=== PATIENT | female | born 1950 | race Caucasian/White ===

== ENCOUNTER → 2020-01-16 17:47 | Outpatient (CLI) | payer MEDICARE, OTHER, SELFPAY ==
--- NOTE | ~2020-01-16 | MM_ITS ---
EXAMINATION: MM screening payal BI w daniel HISTORY: Screening mammogram TECHNIQUE: Craniocaudal and mediolateral oblique 3-D tomosynthesis images were obtained and synthetic 2-D images were generated. CAD analysis was submitted and interpreted. COMPARISON: , 07/25/2017, 07/05/2016 bilateral digital screening mammogram examinations BREAST PARENCHYMAL COMPOSITION: There are scattered areas of fibroglandular density. FINDINGS: There is a stable benign circumscribed 4 mm opacity in the posterior outer left breast, unc hanged since 07/05/2016. Benign calcification in the right breast. There is no evidence of suspicious m ass, calcification, or architectural distortion to suggest malignancy in either breast. There has bee n no suspicious interval change. IMPRESSION: 1. No mammographic evidence of malignancy. 2. Recommend routine screening mammography in one year. BI-RADS Category 2: Benign finding(s). Reviewed, dictated and finalized at location A.
== END ==
PROVIDERS: PCP Family Medicine; Visit Provider Physician Assistant Medical
DX: Z12.31 Encounter for screening mammogram for malignant neoplasm of breast (principal)
CPT/HCPCS: 77063; 77067

== ENCOUNTER 2020-01-27 10:51 | Outpatient (CLI) | payer MEDICARE, OTHER, SELFPAY | END 2020-01-27 10:52 | disposition home or self-care (01) | LOC: ANHSURGERY 10:54 | PROVIDERS: PCP Family Medicine; Visit Provider Urology | DX: N81.10 Cystocele, unspecified (principal); Z01.818 Encounter for other preprocedural examination | CPT/HCPCS: 87086 ==

== ENCOUNTER 2020-02-04 00:47 | Outpatient (CLI) | payer MEDICARE, OTHER, SELFPAY ==
[2020-02-05 03:00] LABS: SARS-CoV-2 RNA PCR Negative
== END 2020-02-04 00:48 | disposition home or self-care (01) ==
LOC: ANHCOVIDDT 00:48
PROVIDERS: PCP Family Medicine; Visit Provider Urology
DX: Z01.812 Encounter for preprocedural laboratory examination (principal); Z20.828 Contact with and (suspected) exposure to other viral communicable diseases
CPT/HCPCS: 87635; C9803; U0003

== ENCOUNTER 2020-02-06 02:19 | Day surgery (SDC) | payer MEDICARE, OTHER, SELFPAY ==
[2020-01-23 10:07] VITALS: BMI 23.6
--- NOTE | 2020-02-01 10:55 | P.HP_ITS ---
H&P: HPI History of Present Illness Date/Time: 02/01/20 10:55 Chief complaint: cytocele, stress incontinence Narrative: Joanne Morejon is a 69 year old female with a cystocele and SOLEDAD Review of Systems Review of Systems: All systems reviewed & are unremarkable except as noted in HPI and below [facility] Social History Social History Smoking status: Never smoker Alcohol intake: current Drinks per week: 1 Substance use: never Additional living arrangements comments: & MOTHER Spiritual care concerns: No Meds Home Medications and Allergies Home Medications Medication Instructions Recorded Confirmed Type L.acid-L.casei-B.bif-B.awilda-FOS 1 cap PO DAILY 01/23/20 01/23/20 History [Probiotic Blend] bupropion HCl 150 mg PO QAM 01/23/20 01/23/20 History calcium citrate-vitamin D3 1 tablet PO DAILY 01/23/20 01/23/20 History [Citracal + D Maximum] cetirizine 10 mg PO QAM 01/23/20 01/23/20 History escitalopram oxalate 20 mg PO HS 01/23/20 01/23/20 History famotidine 40 mg PO QAM 01/23/20 01/23/20 History levothyroxine 75 mcg PO QAM 01/23/20 01/23/20 History montelukast 10 mg PO HS 01/23/20 01/23/20 History Allergies Allergy/AdvReac Type Severity Reaction Status Date / Time No Known Allergies Allergy Verified 01/23/20 10:00 Exam Const: General: cooperative and healthy appearing Eyes: General: appearance normal, both eyes and all related structures Resp: Effort & Inspection: normal respiratory effort GI: Inspection: normal to inspection : External Female Exam: normal appearance of the urethra (hypermobility) Speculum Exam - Vagina: normal palpation (+1 cystocele) Skin: General skin exam: normal color Neuro: General: patient oriented x3 Assessment and Plan Assessment and plan (1) Cystocele: Status: Acute Assessment and Plan: cystocele repair (2) SOLEDAD (stress urinary incontinence, female): Code(s): N39.3 - Stress incontinence (female) (male) Status: Acute Assessment and Plan: urethral sling
--- NOTE | 2020-02-05 10:29 | WPDANESEPPF ---
Anes - Initial Pre Proc Eval Procedure: Operation Date: 02/06/20 09:00 Proposed Procedures p Cystocele Repair - Prem Smith MD s Urethral Sling - Prem Smith MD Date/Time: 02/05/20 10:29 Surgeon: Prem Smith MD Pre Op Diagnosis: cytocele, stress incontinence Patient Data Age: 69 Gender: F Height: 1.52 m Weight: 55 kg Allergies Allergy/AdvReac Type Severity Reaction Status Date / Time No Known Allergies Allergy Verified 01/23/20 10:00 Home Medications Medication Instructions Recorded Confirmed Type L.acid-L.casei-B.bif-B.awilda-FOS 1 cap PO DAILY 01/23/20 01/23/20 History [Probiotic Blend] bupropion HCl 150 mg PO QAM 01/23/20 01/23/20 History calcium citrate-vitamin D3 1 tablet PO DAILY 01/23/20 01/23/20 History [Citracal + D Maximum] cetirizine 10 mg PO QAM 01/23/20 01/23/20 History escitalopram oxalate 20 mg PO HS 01/23/20 01/23/20 History famotidine 40 mg PO QAM 01/23/20 01/23/20 History levothyroxine 75 mcg PO QAM 01/23/20 01/23/20 History montelukast 10 mg PO HS 01/23/20 01/23/20 History Patient hx anesthesia problems: none Family hx anesthesia problems: none PMFSH Past Medical History Medical History (Updated 02/05/20 @ 10:30 by Romulo Harris MD) Anxiety Cystocele Depression Hypothyroidism SOLEDAD (stress urinary incontinence, female) Social History Social History Smoking status: Never smoker Alcohol intake: current Drinks per week: 1 Alcohol use details: WINE Substance use: never Living arrangements: with family Additional living arrangements comments: & MOTHER Spiritual care concerns: No Anes - Eval Final PreProcedure Day of Procedure 02/05/20 10:29 Patient weight: normal Heart: regular rate and rhythm Lungs: clear to auscultation and normal air movement Airway: Mallampati scale class II Neurological: alert and oriented Last oral intake: >/= 8 hours ASA classification: II Emergent: no Anesthetic plan: proceed Anesthesia type and monitoring: general LMA Informed Consent: The patient's anesthetic plan and its attendant risks and benefits were discussed with the patient/family/POA. Questions were solicited and answers provided to the satisfaction of the patient/family/POA.
[2020-02-06] VITALS (9 sets, daily range): BP systolic 102–143; BP diastolic 66–78; PULSE 71–120; RESP 16–19; TEMP 36.6–36.8; O2SAT 97–100; BMI 19.1
--- NOTE | 2020-02-06 07:33 | WPDHPUPDATE1 ---
History and Physical Update Update Date/Time: 02/06/20 07:33 History and Physical has been reviewed, including an updated exam of the patient. There are NO changes in the patient's condition. Risks, benefits, and alternatives have been discussed and questions answered. Patient agrees to proceed with procedure.
[2020-02-06] MEDS: LACTATED RINGERS 1,000 ML 30 ML IV CONT ×2 (08:44→10:43)
[2020-02-06] MEDS: ceFAZolin 2 GM/D5W 50 ML 2 GM/50 ML BAG IVPB (09:45)
[2020-02-06] MEDS: BUPIVACAINE/EPINEPHRINE 0.25% 50 ML VIAL 30 ML INFILTRATE (10:08)
[2020-02-06] MEDS: KETOROLAC 30 MG/ML VIAL (*BKC) IV PUSH (10:14)
--- NOTE | 2020-02-06 10:36 | P.OP_ITS ---
Procedure Note - Detailed Date of procedure: 02/06/20 Pre-op diagnosis: cytocele, stress incontinence Cystocele Stress incontinence Post-op diagnosis: same Procedure performed: Cystocele repair/anterior colporrhaphy Urethral sling Cystoscopy Description of procedure: Anesthesia: General She understood the risks of bleeding, infection, damage to surrounding organs, dyspareunia, postoperative stress incontinence, and recurrence of prolapse. She understands the risk of vaginal mesh extrusion as well as vaginal mesh erosion. She understands the risks of need for mesh removal or loosening of the sling if she is unable into her bladder. She agrees to proceed. She has correctly identified and informed consent was obtained and she was brought to the operating room. She was given general anesthesia. She was p laced in the dorsal thigh position. She was prepped and draped in sterile fashion. Given appropriate perioperative antibiotics. A time-out was performed. I placed a Looney catheter. I placed a [place] retractor. Of note she has significant atrophic vaginitis. I infiltrated the subcutaneous tissues of the anterior vaginal wall with local mixed with injectable saline. I made a midline vaginal incision. I dissected out laterally dissecting the mucosa off the underlying fascial structures. I dissected towards the vaginal apex as well. I then performed a standard cystocele repair with plicating sutures of 0 Vicryl. This reduced the cystocele. I then trimmed excess vaginal mucosa. I closed the vaginal closed with a running 2 0 Vicryl suture. There was excellent hemostasis. I then marked out the thigh incisions. I anesthetized the anterior vaginal wall over the mid urethra. I made a midline incision over the mid urethra. I dissected out laterally taking great care not to injure the refilled vaginal. I passed helical trocars. First on the left. On the right. From the thigh incision towards the vaginal incision. The sling was connected to the trocars. It was brought out through the thigh incision. I tensioned the sling appropriately. I cut and removed the plastic sheaths. I then closed the incision with 2 0 Vicryl. I then performed cystoscopy. The bladder is examined. There is no surgical artifact or injury. Both ureteral orifices were seen to excrete clear yellow urine. At the conclusion she was awakened and transferred to the PACU in stable condition. Sponge count is correct x2. Implants: None Anesthesia: GETA Surgeon: Prem Smith MD Drains: No Packing: No Pathology: none sent Complications: No immediate complications Condition: stable Disposition: PACU
--- NOTE | 2020-02-06 10:50 | SUR.PHASEI ---
02/06/20 1045- oxygen removed per foundation digger
--- NOTE | 2020-02-06 15:19 | SUR.PHASEII ---
1200. PT URINATED WITHOUT ISSUE.
== END 2020-02-06 12:25 | disposition home or self-care (01) ==
PROVIDERS: PCP Family Medicine; Visit Provider Urology
PROC: (CPT 57240; principal; 2020-02-06 09:00)
PROC: (CPT 57240; 2020-02-06 09:00)
DX: N81.10 Cystocele, unspecified (principal); N39.3 Stress incontinence (female) (male); E03.9 Hypothyroidism, unspecified; F41.8 Other specified anxiety disorders
CPT/HCPCS: 57240; 57288; A9270; C1758; C1769; C1771; J0690; J1100; J1885; J2250; J2405; J2704; J3010; J7030; J7120

== ENCOUNTER → 2021-03-10 13:33 | Outpatient (CLI) | payer MEDICARE, OTHER, SELFPAY ==
--- NOTE | ~2021-03-10 | MM_ITS ---
EXAMINATION: MM screening payal BI w daniel HISTORY: Screening TECHNIQUE: Craniocaudal and mediolateral oblique 3-D tomosynthesis images were obtained and synthetic 2-D images were generated. CAD analysis was submitted and interpreted. COMPARISON: Comparison to multiple prior studies sequentially, with oldest reviewed study dated 05/24. BREAST PARENCHYMAL COMPOSITION: There are scattered areas of fibroglandular density. FINDINGS: There is no evidence of suspicious mass, calcification, or architectural distortion to sugg est malignancy in either breast. There has been no suspicious interval change. IMPRESSION: 1. No mammographic evidence of malignancy. 2. Recommend routine screening mammography in one year. BI-RADS Category 1: Negative Reviewed, dictated and finalized at location A. 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
== END ==
PROVIDERS: PCP Family Medicine; Visit Provider Family Medicine
DX: Z12.31 Encounter for screening mammogram for malignant neoplasm of breast (principal)
CPT/HCPCS: 77063; 77067

== ENCOUNTER → 2021-04-20 11:31 | Outpatient (CLI) | payer MEDICARE, OTHER, SELFPAY ==
--- NOTE | ~2021-04-20 | DEXA_ITS ---
Bone Density Report Name: CHANDA RUTHERFORD Age: 70 Sex: Female Ethnicity: White Date of : 1950 Indication: postmenopausal osteoporosis; monitoring treatment; inflammatory bowel disease; asthma or emphysema; hysterectomy; Referring Provider: SOULEYMANE, ERICA Study: Bone densitometry was performed. Exam Date: April 20, 2021 Accession number: [id number] Bone Density: Region BMD T-score Z-score Classification AP Spine (L1-L4) 0.721 -3.0 -0.8 Osteoporosis Femoral Neck (Left) 0.547 -2.7 -0.8 Osteoporosis Total Hip (Left) 0.758 -1.5 0.1 Osteopenia Femoral Neck (Right) 0.575 -2.5 -0.6 Osteoporosis Total Hip (Right) 0.767 -1.4 0.1 Osteopenia Total Hip Mean 0.763 -1.5 0.1 Osteopenia World Health Organization criteria for BMD impression classify patients as: Normal (T-score at or above -1.0), Osteopenia (T-score between -1.0 and -2.5), or Osteoporosis (T-score at or below -2.5). 10-year Fracture Risk: FRAX not reported because: Some T-score for Spine Total or Hip Total or Femoral Neck at or below -2.5 Treated for osteoporosis Previous Exams: Region Exam Age BMD T-score BMD Change BMD Change Date g/cm2 vs Baseline vs Previous AP Spine(L1-L4) 04/20/2021 70 0.721 -3.0 -0.004 -0.041* 05/22/2011 60 0.762 -2.6 0.037 0.083* 11/25/2008 58 0.679 -3.3 -0.046 -0.014 10/02/2006 55 0.693 -3.2 -0.032 -0.032 11/06/2003 53 0.725 -2.9 Total Hip(Left) 04/20/2021 70 0.758 -1.5 0.062 -0.005 05/22/2011 60 0.763 -1.5 0.067 0.059* 11/25/2008 58 0.704 -2.0 0.008 0.012 10/02/2006 55 0.692 -2.0 -0.004 -0.004 11/06/2003 53 0.696 -2.0 Total Hip(Right) 04/20/2021 70 0.767 -1.4 0.038 -0.010 05/22/2011 60 0.777 -1.4 0.048 0.043* 11/25/2008 58 0.733 -1.7 0.005 0.032* 10/02/2006 55 0.702 -2.0 -0.027 -0.027 11/06/2003 53 0.729 -1.7 *Denotes significance at 95% confidence level, LSC for AP Spine = 0.022 g/cm2, LSC for Total Hip = 0.027 g/cm2 Clinical Information Provided by Patient: Is being treated for osteoporosis Has used the following medications: Fosamax (i.e. alendronate), MTV Has the following medical conditions: Asthma or Emphysema, Inflammatory bowel diseases, Hysterectomy Patient maximum height was 60.5 Menopause Age: 39 No regular weight bearing e
== END ==
PROVIDERS: PCP Family Medicine; Visit Provider Physician Assistant Medical
DX: M81.0 Age-related osteoporosis without current pathological fracture (principal); M85.852 Other specified disorders of bone density and structure, left thigh; M85.851 Other specified disorders of bone density and structure, right thigh
CPT/HCPCS: 77080

== ENCOUNTER 2021-12-04 11:22 | Emergency (ER) | payer MEDICARE, OTHER, SELFPAY ==
[2021-12-04 11:30] VITALS: BP 146/73; PULSE 79; RESP 16; TEMP 36.8; O2SAT 100
--- NOTE | 2021-12-04 11:39 | ED.SKABFB ---
HPI - Skin/Abscess/Foreign Bdy General Chief complaint: Skin/Abscess/Foreign Body Stated complaint: Rash on Neck, Upper Chest Time Seen by Provider: 12/04/21 11:42 History of Present Illness HPI narrative: 71-year-old female presents to the [facility] with complaints of redness, itching to her lower face and chest. Patient reports that she tried to put a facial mask on to make herself pretty and applied some to her chest. Has taken Bao NICE complaint: rash Related Data Home Medications Medication Instructions Recorded Confirmed L.acidophil-L.casei-B.bifid-B.longum-FOS 1 cap PO DAILY 01/23/20 02/06/20 2 billion cell-50 mg capsule (Probiotic Blend) bupropion HCl 150 mg 24 hr tablet, 150 mg PO QAM 01/23/20 02/06/20 extended release calcium citrate 315 mg 1 tablet PO DAILY 01/23/20 02/06/20 calcium-vitamin D3 6.25 mcg (250 unit) tablet (Citracal + Vitamin D Maximum) cetirizine 10 mg tablet 10 mg PO QAM 01/23/20 02/06/20 escitalopram oxalate 20 mg tablet 20 mg PO HS 01/23/20 02/06/20 famotidine 20 mg tablet 40 mg PO QAM 01/23/20 02/06/20 levothyroxine 75 mcg tablet 75 mcg PO QAM 01/23/20 02/06/20 montelukast 10 mg tablet 10 mg PO HS 01/23/20 02/06/20 Allergies Allergy/AdvReac Type Severity Reaction Status Date / Time No Known Allergies Allergy Verified 02/06/20 08:34 Review of Systems Review of Systems: All systems reviewed & are unremarkable except as noted in HPI and below Constitutional: Constitutional: Reports no additional constitutional complaints, Denies chills, Denies fever(s), Denies headache(s) and Denies weakness Eyes: Eyes: Reports no additional eye complaints and Denies change in vision ENT: Reports system reviewed and no additional complaints, except as documented, Denies dysphagia, Denies dizziness, Denies headache(s), Denies nasal congestion and Denies sore throat Cardiovascular: Cardiovascular: Reports no additional cardiovascular complaints, Denies chest pain, Denies syncope and Denies dyspnea Respiratory: Respiratory: Reports no additional respiratory complaints, Denies chest congestion, Denies cough, Denies dyspnea and Denies wheezing Gastrointestinal: Gastrointestinal: Denies dysphagia Musculoskeletal: Musculoskeletal: Reports no additional musculoskeletal complaints and Denies numbness Integumentary/Breasts: Skin/Breast: Reports as per HPI and Reports rash Neurologic: Reports system reviewed and no additional complaints, except as documented, Denies dizziness, Denies syncope, Denies headache(s), Denies focal weakness, Denies numbness and Denies weakness Psychiatric: Psychiatric: Reports no additional psychiatric complaints Allergic/Immunologic: Allergic/Immunologic: Reports no additional allergic/immunologic complaints and Denies wheezing PMFSH Past Medical History Medical History Anxiety Cystocele Depression Hypothyroidism SOLEDAD (stress urinary incontinence, female) Social History Social History Smoking status: Never smoker Alcohol intake: current Drinks per week: 1 Alcohol use details: WINE Substance use: never Additional living arrangements comments: & MOTHER Spiritual care concerns: No Exam Const: General: healthy appearing, no acute distress and alert Nutritional Appearance: well nourished Orientation/consciousness: patient oriented x3 Limitations: no limitations HENMT: Head: normal to inspection Ears: external ears normal, TM's normal bilaterally and EAC's normal General nose exam: Normal external nose present and Normal nares present Face and sinus: normal facial exam Mouth: Yes Normal oral and palatal mucosa present, Yes lip normal and Yes moist mucous membranes Throat: posterior oropharynx normal and uvula midline Eyes: Conjunctivae: conjunctivae normal Pupils: Equal, round and reactive pupils present Neck: Neck: no
== END 2021-12-04 11:51 | disposition home or self-care (01) ==
PROVIDERS: Emergency Provider Nurse Practitioner; PCP Family Medicine
DX: L25.9 Unspecified contact dermatitis, unspecified cause (principal); E03.9 Hypothyroidism, unspecified; F41.9 Anxiety disorder, unspecified; F32.A Depression, unspecified
CPT/HCPCS: 99213; G0463

== ENCOUNTER 2022-02-17 09:16 | Emergency (ER) | payer MEDICARE, OTHER, SELFPAY ==
--- NOTE | 2022-02-17 09:20 | ED.BACK ---
HPI - Back Pain/Injury General Chief Complaint: Back Pain/Injury Stated Complaint: right flank pain; painful when walk; Time Seen by Provider: 02/17/22 09:23 Source: patient, RN notes reviewed and old records reviewed Mode of arrival: ambulatory Limitations: no limitations History of Present Illness HPI Narrative: 71-year-old female presents to the [facility] with right lower back pain since Sunday. States she went to try to roll her mother when she felt a pull in her lower back. No loss retention of bowel or bladder. No numbness or tingling in extremities. No urinary symptoms. No abdominal pain has been using topicals and taking ibuprofen with little relief. Onset (ago): day(s) (2) Related Data Home Medications Medication Instructions Recorded Confirmed L.acidophil-L.casei-B.bifid-B.longum-FOS 1 cap PO DAILY 01/23/20 02/17/22 2 billion cell-50 mg capsule (Probiotic Blend) calcium citrate 315 mg 1 tablet PO DAILY 01/23/20 02/17/22 calcium-vitamin D3 6.25 mcg (250 unit) tablet (Citracal + Vitamin D Maximum) cetirizine 10 mg tablet 10 mg PO QAM 01/23/20 02/17/22 escitalopram oxalate 20 mg tablet 20 mg PO HS 01/23/20 02/17/22 levothyroxine 75 mcg tablet 75 mcg PO QAM 01/23/20 02/17/22 montelukast 10 mg tablet 10 mg PO HS 01/23/20 02/17/22 Allergies Allergy/AdvReac Type Severity Reaction Status Date / Time No Known Allergies Allergy Verified 02/06/20 08:34 Review of Systems Review of Systems: All systems reviewed & are unremarkable except as noted in HPI and below Constitutional: Constitutional: Reports no additional constitutional complaints, Denies chills and Denies fever(s) Eyes: Eyes: Reports no additional eye complaints ENT: Reports system reviewed and no additional complaints, except as documented Cardiovascular: Cardiovascular: Reports no additional cardiovascular complaints Respiratory: Respiratory: Reports no additional respiratory complaints Gastrointestinal: Gastrointestinal: Reports no additional gastrointestinal complaints Musculoskeletal: Musculoskeletal: Reports as per HPI and Reports back pain Integumentary/Breasts: Skin/Breast: Reports system reviewed and no additional complaints, except as docu Neurologic: Reports system reviewed and no additional complaints, except as documented Psychiatric: Psychiatric: Reports no additional psychiatric complaints Allergic/Immunologic: Allergic/Immunologic: Reports no additional allergic/immunologic complaints [facility] Past Medical History Medical History Anxiety Cystocele Depression Hypothyroidism SOLEDAD (stress urinary incontinence, female) Social History Social History Smoking status: Never smoker Alcohol intake: current Drinks per week: 1 Alcohol use details: WINE Substance use: never Additional living arrangements comments: & MOTHER Spiritual care concerns: No Comments At the time of my signature, I reviewed and agree with the nursing past medical, surgical, social, and family history. There is no relevant family history pertinent to the patient complaint. Exam Const: General: healthy appearing, comfortable, no acute distress, well developed, alert and well nourished Nutritional Appearance: well nourished Orientation/consciousness: patient oriented x3 Limitations: no limitations HENMT: Head: normal to inspection Ears: external ears normal Face/Nose/Sinus: Normal external nose present Face and sinus: normal facial exam Eyes: General: appearance normal, both eyes and all related structures Pupils: Equal, round and reactive pupils present Neck: Neck: normal visual inspection, full ROM, no lymphadenopathy and no meningeal signs Chest: Chest palpation & inspection: normal inspection of the chest Resp: Effort & Inspection: normal respiratory effort and no use of accessory muscles Cardio
[2022-02-17 09:25] VITALS: BP 129/79; PULSE 94; RESP 18; TEMP 36.8; O2SAT 100
== END 2022-02-17 09:50 | disposition home or self-care (01) ==
PROVIDERS: Emergency Provider Nurse Practitioner; PCP Family Medicine
DX: M54.41 Lumbago with sciatica, right side (principal); E03.9 Hypothyroidism, unspecified
CPT/HCPCS: 99213; G0463

== ENCOUNTER → 2022-03-31 16:51 | Outpatient (CLI) | payer MEDICARE, OTHER, SELFPAY ==
--- NOTE | ~2022-03-31 | MM_ITS ---
EXAMINATION: MM screening payal BI w daniel HISTORY: Screening mammogram TECHNIQUE: Craniocaudal and mediolateral oblique 3-D tomosynthesis images were obtained and synthetic 2-D images were generated. CAD analysis was submitted and interpreted. COMPARISON: 03/10/2021, 01/16/2020, 08/02/2018 bilateral screening mammogram examinations BREAST PARENCHYMAL COMPOSITION: There are scattered areas of fibroglandular density. FINDINGS: Stable circumscribed approximately 3.3 mm opacity in the inner aspect of the upper inner qu adrant left breast. There is no evidence of suspicious mass, calcification, or architectural distorti on to suggest malignancy in either breast. There has been no suspicious interval change. IMPRESSION: 1. No mammographic evidence of malignancy. 2. Recommend routine screening mammography in one year. BI-RADS Category 2: Benign finding(s). Reviewed, dictated and finalized at location A. 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
== END ==
PROVIDERS: PCP Physician Assistant Medical; Visit Provider Physician Assistant Medical
DX: Z12.31 Encounter for screening mammogram for malignant neoplasm of breast (principal)
CPT/HCPCS: 77063; 77067

== ENCOUNTER 2025-02-11 13:07 | Emergency (ER) | payer MEDICARE, OTHER, SELFPAY ==
--- NOTE | ~2025-02-11 | XR_ITS ---
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 Technique: 2 views obtained. Findings: The lungs are clear, no effusion. No pneumothorax. Heart is normal size. Mediastinal and hilar contours are within normal limits. Bony thorax no acute abnormality. Impression: No acute cardiopulmonary abnormality. Reviewed, dictated and finalized at location P. SCOPE REPAIRER Impression: No acute cardiopulmonary abnormality.
[2025-02-11 13:20] VITALS: BP 145/81; PULSE 78; RESP 20; TEMP 36.8; O2SAT 99
--- NOTE | 2025-02-11 13:36 | ED.URI ---
HPI - URI/Sore Throat General Chief Complaint: Upper Respiratory Infection Stated Complaint: Congestion/Sinus Time Seen by Provider: 02/11/25 13:23 Source: patient and RN notes reviewed Mode of arrival: ambulatory Limitations: no limitations History of Present Illness HPI Narrative: 74-year-old female patient presents today with a 10 day history cough, postnasal drip with shortness of breath x1 week. She is also having some congestion and sinus pressure. Sore throat was present initially but has since resolved. Denies fever or known sick contacts. She has tried Tylenol, Robitussin, and Mucinex and currently rates her discomfort 8/. No history of asthma or COPD. Related Data Home Medications ?Medication ?Instructions ?Recorded ?Confirmed ?Last Taken ?Type L.acidophil-L.casei-B.bifid-B.longum-FOS 1 cap PO DAILY 01/23/20 02/17/22 01/30/20 History 2 billion cell-50 mg capsule (Probiotic Blend) calcium 315 mg (as 1 tablet PO DAILY 01/23/20 02/17/22 01/30/20 History citrate)-vitamin D3 6.25 mcg (250 unit) tablet (Citracal + Vitamin D Maximum) cetirizine 10 mg tablet 10 mg PO QAM 01/23/20 02/17/22 02/05/20 History escitalopram oxalate 20 mg tablet 20 mg PO HS 01/23/20 02/17/22 02/05/20 History levothyroxine 75 mcg tablet 75 mcg PO QAM 01/23/20 02/17/22 02/06/20 History montelukast 10 mg tablet 10 mg PO HS 01/23/20 02/17/22 02/05/20 History loratadine 10 mg tablet mg 02/11/25 Unknown History Allergies Allergy/AdvReac Type Severity Reaction Status Date / Time No Known Allergies Allergy Verified 02/11/25 13:27 [facility] Past Medical History Medical History Depression Anxiety Hypothyroidism SOL[place] (stress urinary incontinence, female) Cystocele Social History Social History Alcohol intake: current Drinks per week: 1 Alcohol use details: WINE Substance use: never Living arrangements: with family Additional living arrangements comments: & MOTHER Spiritual care concerns: No Comments At time of signature, I have reviewed and agree with nursing past medical, surgical, social and family history unless otherwise noted. Please see nursing chart for further information. There is no relevant family history pertinent to the presenting complaint Exam Narrative: GENERAL: Mildly ill-appearing, well-nourished, and in no acute distress. HEAD: Normocephalic, atraumatic. EYES: EOMI. No redness or drainage. Conjunctivae normal. ENT: Mucous membranes pink and moist. Nares congested. Bilateral frontal and maxillary sinus tenderness. TMs normal bilaterally. Throat mildly erythematous without edema or exudate. Uvula midline. NECK: Normal AROM. Supple. No lymphadenopathy. CHEST: No respiratory distress. Clear to auscultation with frequent harsh cough. HEART: Regular rate and rhythm. No murmur appreciated. EXTREMITIES: Normal range of motion. No edema. SKIN: Warm, dry, no rash. Capillary refill normal. Normal skin turgor. NEURO: No focal deficits. Alert and oriented x3. Gait steady. PSYCH: Normal affect. No signs of depression or anxiety. Course Course Level of Care: Express Care Visit Vital Signs Vital signs: Vital Signs Temperature 98.3 F 02/11/25 13:20 Pulse Rate 78 02/11/25 13:20 Respiratory Rate 20 02/11/25 13:20 Blood Pressure 145/81 H 02/11/25 13:20 Pulse Oximetry 99 02/11/25 13:20 Oxygen Delivery Room Air 02/11/25 13:20 Temperature 98.3 F 02/11/25 13:20 Pulse Rate 78 02/11/25 13:20 Respiratory Rate 20 02/11/25 13:20 Blood Pressure 145/81 H 02/11/25 13:20 Pulse Oximetry 99 02/11/25 13:20 Oxygen Delivery Room Air 02/11/25 13:20 Reviewed MDM - URI/Sore Throat MDM Narrative Medical decision making narrative: 74-year-old female patient presents today with a 10 day history cough, postnasal drip with shortness of breath x1 week. She is also having some congestion and sinus pressure. Sore throat was present initially but has since resolved. Denies fever or known sick contacts. She has tried Tylenol, Robitussin, and Mucinex and currently rates her discomfort 8/10. No history of asthma or COPD. Upon exam, patient is mildly ill appearing nasal congestion, tender frontal and maxillary sinuses bilaterally, and erythematous throat. Chest x-ray negative. Patient will be treated with Augmentin for sinusitis and prednisone for bronchitis. Vital signs stable. Patient agrees with plan. Anticipatory guidance given. Differential Diagnosis Differential diagnosis: Likely upper respiratory infection, otitis media, sinusitis, viral infection, bronchitis and other (Pneumonia) Imaging Data Radiologist's impression: ITS Impressions Chest X-Ray 02/11/25 13:48 Impression: No acute cardiopulmonary abnormality. Critical Care Time Critical Care Time Critical Care Time: No Discharge Plan Discharge Clinical Impression: Bronchitis Sinusitis Qualifiers: Sinusitis location: unspecified location Chronicity: acute Recurrence: non-recurrent Qualified Code(s): J01.90 - Acute sinusitis, unspecified Patient Disposition: Home Condition: Stable Instructions: Antibiotic Form, Sinusitis (ED), Acute Bronchitis (ED) Additional Instructions: Your chest x-ray is negative today. Please take the Augmentin and prednisone as directed. Take Tessalon Perles for cough as prescribed. Follow-up with your PCP next week if symptoms are not improving. As discussed, please go to the ER immediately with any worsening symptoms such as new fever greater than 100.3, chest pain, worsening shortness of breath. Patient Language: Grenadian Prescriptions: New benzonatate 200 mg capsule 200 mg PO TID PRN (Reason: cough) Qty: 20 0RF prednisone 20 mg tablet 40 mg PO DAILY 5 Days Qty: 10 0RF amoxicillin-pot clavulanate 875-125 mg tablet 1 tablet PO Q12H 7 Days Qty: 14 0RF No Action ibuprofen 600 mg tablet 600 mg PO TID PRN (Reason: fever or pain) Qty: 30 0RF loratadine 10 mg tablet cetirizine 10 mg tablet 10 mg PO QAM levothyroxine 75 mcg tablet 75 mcg PO QAM montelukast 10 mg tablet 10 mg PO HS escitalopram oxalate 20 mg tablet 20 mg PO HS calcium citrate-vitamin D3 [Citracal + D Maximum] 315 mg-6.25 mcg (250 unit) Tablet 1 tablet PO DAILY Probiotic Blend 2 billion cell-50 mg Capsule 1 cap PO DAILY Follow-up/Referrals: Nicho,EVA Lynn [Primary Care Provider, Unknown] Time of Disposition: 14:00
== END 2025-02-11 14:07 | disposition home or self-care (01) ==
PROVIDERS: Emergency Provider Nurse Practitioner; PCP Physician Assistant Medical
DX: J40 Bronchitis, not specified as acute or chronic (principal); J01.90 Acute sinusitis, unspecified; E03.9 Hypothyroidism, unspecified; F41.9 Anxiety disorder, unspecified; F32.A Depression, unspecified
CPT/HCPCS: 71046; 99213; G0463